=== PATIENT | female | born 1970 | race Caucasian/White ===

== ENCOUNTER 2017-04-15 14:06 | Emergency (ER) | payer BC ==
[2017-04-15 14:13] VITALS: BP 127/86
--- NOTE | 2017-04-15 15:04 | UC ---
Laceration HPI - History Of Current Complaint Chief Complaint: UCLaceration Stated Complaint: FINGER LACERATION Time Seen by Provider: 04/15/17 14:47 Hx Obtained From: Patient Laceration Location: Finger - cut L thumb on sharp metal Mechanism Of Injury: Sharp Trauma Onset/Duration: Sudden Onset Severity: Mild Pain Scale Used: 0-10 Numeric - 2 Aggravating Factors: Movement - Allergies/Home Medications Allergies/Adverse Reactions: Allergies Allergy/AdvReac Type Severity Reaction Status Date / Time No Known Allergies Allergy Verified 04/15/17 14:10 Home Medications: Home Medications Terbinafine HCl [Lamisil] 04/15/17 [History] PMH/Surg Hx/FS Hx/Imm Hx Previously Healthy: Yes Other History Of: Negative For: Anticoagulant Therapy - Surgical History Surgical History: None - Family History Known Family History: Positive: None - Social History Occupation: Employed Full-time Lives: With Family Alcohol Use: None Substance Use Type: None Smoking Status (MU): Former Smoker Review of Systems Constitutional: Negative Respiratory: Negative Cardiovascular: Negative Neurovascular: Negative Musculoskeletal: Negative Neurological: Negative Psychological: Negative All Other Systems Reviewed And Are Negative: Yes Physical Exam Triage Information Reviewed: Yes Appearance: Well-Appearing Vital Signs: Initial Vital Signs Temp 98.9 F 04/15/17 14:11 Pulse 80 04/15/17 14:11 Resp 16 04/15/17 14:11 BP 127/86 04/15/17 14:11 Pulse Ox 99 04/15/17 14:11 Vital Signs Reviewed: Yes Respiratory Exam: Normal Cardiovascular Exam: Normal Musculoskeletal Exam: Normal Musculoskeletal: Positive: Strength Intact, ROM Intact Neurological Exam: Normal Psychological Exam: Normal Skin Exam: Other - lac L thumb Laceration Repair - Laceration Repair 1 Description: Linear Laceration Size After Repair: Length (cm) - 12mm, Width (mm) - 3mm, Depth (mm) - 3mm Modified For Repair: No Anesthesia Used: 1.0% Lido Irrigation With Pressure Irrigation Device: Yes Closure Material: Sutures Closure Method: Single Layer Suture Of: Skin Suture Type: Nylon - 4 5.0 sutures placed Laceration Course/Dx - Differential Dx - Laceration/Wound Differental Diagnoses: Avulsion, Laceration Provider Diagnoses: Laceration L thumb Discharge - Discharge Plan Condition: Good Disposition: HOME Patient Education Materials: Laceration (ED) Additional Instructions: ice and elevate hand for next 48h ibuprofen 600mg every 6 hours for pain as needed keep wound clean and dry return for suture removal in 10 days
[2017-04-15] MEDS ORDERED: Lidocaine 1% INJ* 10 MG/ML 30 ML SDV INJ ONE (15:05)
[2017-04-15] MEDS ORDERED: Lidocaine 1% MPF* 2 ML VIAL ONE (15:10)
[2017-04-15] MEDS ORDERED: Lidocaine 1%* 5 ML VIAL INJ ONE (15:10)
== END 2017-04-15 15:42 | disposition home or self-care (01) ==
LOC: UCEAST 14:06
DX: S61.012A Laceration without foreign body of left thumb without damage to nail, initial encounter (principal); W26.8XXA Contact with other sharp object(s), not elsewhere classified, initial encounter
CPT/HCPCS: 99212; G0463; J2001

== ENCOUNTER 2017-07-23 10:58 | Emergency (ER) | payer BC ==
[2017-07-23 11:09] VITALS: BP 132/93
[2017-07-23] MEDS ORDERED: Tetan/Diph/Pertus SYR(Tdap)* 0.5 ML SYR(BOOSTRIX) use SYR IM ONE (12:02)
--- NOTE | 2017-07-23 12:12 | UC ---
Laura Irving SooYoung, scribed for Denisse Oliver MD on 07/23/17 at 1150 . Laceration HPI - HPI Summary HPI Summary: A 46 y/o F presents to [facility] [place] with c/o finger lac to R middle finger onset 90 minutes [employer]. 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 Mild bleeding at bedside, pt states it's much improved since onset. Denies numbness/tingling of R middle finger. Last tetanus was in 08/2013 or 08/2012, she will confirm it. No daily meds. - History Of Current Complaint Chief Complaint: UCLaceration Stated Complaint: INJURY TO FINGER Time Seen by Provider: 07/23/17 11:09 Hx Obtained From: Patient Hx Last Menstrual Period: 07/21/17 Laceration Location: Finger - R middle Mechanism Of Injury: Sharp Trauma Onset/Duration: Sudden Onset, Lasting Hours - 1.5, Still Present Severity: Mild Pain Intensity: 3 Pain Scale Used: 0-10 Numeric Aggravating Factors: Position, Movement Hands: 1 - 5mm irregular wound with macerated skin. Related History: Dominant Hand Right - Allergies/Home Medications Allergies/Adverse Reactions: Allergies Allergy/AdvReac Type Severity Reaction Status Date / Time No Known Allergies Allergy Verified 07/23/17 11:02 Home Medications: Home Medications NK [No Home Medications Reported] 07/23/17 [History Confirmed 07/23/17] PMH/Surg Hx/FS Hx/Imm Hx Previously Healthy: Yes Cardiovascular History: Other Other Cardiovascular History: denies HTN, cardiac dz. Other History Of: Negative For: Anticoagulant Therapy - Surgical History Surgical History: None - Family History Known Family History: Positive: Hypertension, Other - neg: Breast CA Negative: Blood Disorder - Social History Occupation: Employed Full-time Lives: With Family Alcohol Use: Occasionally Substance Use Type: None Smoking Status (MU): Former Smoker - Immunization History Most Recent Tetanus Shot: 2009 Hx Tetanus, Diphtheria Vaccination: Yes - 7 years ago Thanksgiving Review of Systems Constitutional: Negative Skin: Other - lac to R middle finger Eyes: Negative ENT: Negative Respiratory: Negative Cardiovascular: Negative Gastrointestinal: Negative Genitourinary: Negative Motor: Negative Neurovascular: Negative Musculoskeletal: Negative Neurological: Negative Psychological: Negative All Other Systems Reviewed And Are Negative: Yes Physical Exam Triage Information Reviewed: Yes Appearance: Well-Appearing Vital Signs: Initial Vital Signs Temp 98.3 F 07/23/17 11:03 Pulse 72 07/23/17 11:03 Resp 16 07/23/17 11:03 BP 132/93 07/23/17 11:03 Pulse Ox 100 07/23/17 11:03 Neck exam: Normal Respiratory: Positive: Lungs clear Cardiovascular: Positive: RRR, No Murmur Neurological: Positive: Alert Psychological Exam: Normal Skin: Positive: Other - Palmar surface or right hand 3rd digit over middle phalanx, macerated skin over 5 x 4 mm area of fat pad. Bleeding well controlled. Skin flap tacked to surface for protection, wound dressing applied. Laceration Course/Dx - Course/Dx Course Of Treatment: Medications reviewed this visit. Elevated blood pressure noted, recommeded f/u with PCP. 5mm open wound not amenable to repair. Wound dressing applied. - Differential Dx - Laceration/Wound Differental Diagnoses: Avulsion, Laceration Provider Diagnoses: 1. skin avulsion right hand third digit. 2. Elevated blood pressure without diagnosis of hypertension Discharge - Discharge Plan Condition: Stable Disposition: HOME Patient Education Materials: Skin Avulsion (ED), Diphtheria/Pertussis/Tetanus Vaccine (By injection) Referrals: Aren Wagner MD [Primary Care Provider] - Additional Instructions: Your blood pressure reading today was 132/93, which is PRE-HYPERTENSIVE. Follow- up with your primary care provider within 4 weeks for blood pressure readings and further evaluation. You have had a tetanus booster today. Keep the dressing in place until Monday morning as long as it stays dry and is not soiled. The dressing is not adherent, but if it is stuck soak the dressing off in warm soapy water so as not to dsrupt the healing surface. Keep a light application of antibiotic ointment on the wound, and follow up if there is redness or drainage suggestive of infection. The documentation as recorded by the Laura rajput SooYoung accurately reflects the service I personally performed and the decisions made by me, Denisse Oliver MD.
== END 2017-07-23 12:30 | disposition home or self-care (01) ==
LOC: UCEAST 10:58
DX: S61.212A Laceration without foreign body of right middle finger without damage to nail, initial encounter (principal); R03.0 Elevated blood-pressure reading, without diagnosis of hypertension; Y93.H2 Activity, gardening and landscaping; Y92.9 Unspecified place or not applicable; W29.8XXA Contact with other powered hand tools and household machinery, initial encounter; Z87.891 Personal history of nicotine dependence
CPT/HCPCS: 90471; 90715; 99212; G0463

== ENCOUNTER 2017-09-15 09:04 | Emergency (ER) | payer BC ==
[2017-09-15 09:11] VITALS: BP 129/87
--- NOTE | 2017-09-15 09:31 | UC ---
Respiratory Complaint HPI - HPI Summary HPI Summary: 47 yo female with the acute onset of f/c myalgias/cough and congestion no CP or sob no n/v/d - History of Current Complaint Chief Complaint: UCGeneralIllness Stated Complaint: ACHEY, FEVER, AND COUGH Time Seen by Provider: 09/15/17 09:13 Hx Obtained From: Patient Hx Last Menstrual Period: 09/13/17 Onset/Duration: Sudden Onset, Lasting Hours - about 24 Timing: Constant Severity Initially: Moderate Severity Currently: Moderate Pain Intensity: 6 Pain Scale Used: 0-10 Numeric Character: Cough: Productive - at times Aggravating Factors: Nothing, Other Associated Signs And Symptoms: Positive: Fever, Chills, Nasal Congestion - Allergies/Home Medications Allergies/Adverse Reactions: Allergies Allergy/AdvReac Type Severity Reaction Status Date / Time No Known Allergies Allergy Verified 09/15/17 09:11 Home Medications: Home Medications Phenylephrine-Chlorpheniramine [Sharmila-[place] Plus Cold & 7.8-2-10-325 mg] 2 tab PO Q8HR PRN 09/15/17 [History Confirmed 09/15/17] PMH/Surg Hx/FS Hx/Imm Hx Previously Healthy: Yes Other History Of: Negative For: Anticoagulant Therapy - Surgical History Surgical History: None - Family History Known Family History: Positive: Hypertension, Other - neg: Breast CA Negative: Blood Disorder - Social History Alcohol Use: Occasionally Substance Use Type: None Smoking Status (MU): Former Smoker - Immunization History Most Recent Influenza Vaccination: Not UTD Most Recent Tetanus Shot: 2017 Hx Tetanus, Diphtheria Vaccination: Yes - 7 years ago Thanksgiving Review of Systems Constitutional: Fever, Chills, Fatigue ENT: Sinus Congestion Respiratory: Cough Musculoskeletal: Myalgia Is Patient Immunocompromised?: No All Other Systems Reviewed And Are Negative: Yes Physical Exam Triage Information Reviewed: Yes Appearance: Well-Appearing - no toxic, No Pain Distress, Well-Nourished Vital Signs: Initial Vital Signs Temp 97.3 F 09/15/17 09:07 Pulse 89 09/15/17 09:07 Resp 16 09/15/17 09:07 BP 129/87 09/15/17 09:07 Pulse Ox 98 09/15/17 09:07 Eyes: Positive: Conjunctiva Clear ENT: Positive: Hearing grossly normal, Pharynx normal, Nasal congestion, TMs normal, Uvula midline. Negative: Trismus, Muffled voice, Hoarse voice, Dental tenderness, Sinus tenderness Dental Exam: Normal Neck: Positive: Supple, Nontender, No Lymphadenopathy Respiratory: Positive: No respiratory distress, Rhonchi Cardiovascular: Positive: RRR, No Murmur Abdomen Description: Negative: CVA Tenderness (R), CVA Tenderness (L) Bowel Sounds: Positive: Present Musculoskeletal: Positive: Strength Intact, ROM Intact, No Edema Neurological: Positive: Alert Psychological Exam: Normal Skin Exam: Normal UC Diagnostic Evaluation - Laboratory O2 Sat by Pulse Oximetry: 98 - normal/not hypoxic - Radiology Xray Interpretation: Positive (See Comments) - PATCHY RIGHT MIDLUNG CONSOLIDATION. RECOMMEND FOLLOW-UP UNTIL RESOLUTION TO EXCLUDE Respiratory Course/Dx - Differential Dx/Diagnosis Provider Diagnoses: RML pneumonia Discharge - Discharge Plan Condition: Stable Disposition: HOME Prescriptions: Amoxicillin/Clavulanate TAB* [Augmentin TAB 875*] 875 mg PO BID #14 tab Patient Education Materials: Pneumonia (ED) Referrals: Aren Wagner MD [Primary Care Provider] - 2 Weeks (recheck 2-3 weeks for re xray ) Additional Instructions: recheck in 3 days if still febrile recheck sooner for worsening symptoms radiologist has suggested you get re xrayed to assure resolution of your pneumonia
--- NOTE | 2017-09-15 09:44 | RAD ---
HISTORY: Fever, cough COMPARISONS: November 01, 2016 VIEWS: 4: Frontal dual-energy and lateral views of the chest. FINDINGS: CARDIOMEDIASTINAL SILHOUETTE: The cardiomediastinal silhouette is normal. SAMANTHA: The samantha are normal. PLEURA: The costophrenic angles are sharp. No pleural abnormalities are noted. LUNG PARENCHYMA: There is patchy alveolar opacification of superior segment of the right lower lobe. ABDOMEN: The upper abdomen is clear. There is no subphrenic gas. BONES AND SOFT TISSUES: No bone or soft tissue abnormalities are noted. OTHER: None. IMPRESSION: PATCHY RIGHT MIDLUNG CONSOLIDATION. RECOMMEND FOLLOW-UP UNTIL RESOLUTION TO EXCLUDE UNDERLYING PULMONARY PARENCHYMAL PATHOLOGY.
== END 2017-09-15 09:54 | disposition home or self-care (01) ==
LOC: UCEAST 09:04
DX: J18.9 Pneumonia, unspecified organism (principal); R05 Cough; R50.9 Fever, unspecified; R09.81 Nasal congestion
CPT/HCPCS: 71020; 87502; 99212; G0463